=== PATIENT | female | born 1935 | race Caucasian/White ===

== ENCOUNTER → 2018-08-02 | Outpatient (REF) | payer MEDICARE, OTHER ==
[~2018-08-02] MED LIST: ASPIRIN EC325 MG PO; CALCIUM500 MG PO; COZAAR50 MG PO; FISH OIL300 MG PO; FOSAMAX70 MG PO; HYDROCO/APAP1 T11 PO; METO25TAB PO; MULTI VIT PO; OMEPRAZOLE20 MG PO; PROTONIX40 M2 OR; PROTONIX40 MG PO; SIMVASTATIN40 MG OR; SYMBICORT1 AE1 IN; VENLAFAXINE37.5 M2 PO; VOLTAREN75 MG PO
[2018-08-02 12:58] LABS: HEMATOCRIT 40.4 % (37.0-47.0); MEAN CELL VOLUME 101.3 fL CALC (80.0-100.0); MEAN CORPUSCULAR HGB 32.6 pG CALC (26.0-32.0); MEAN CORPUSCULAR HGB CONC 32.2 g/L CALC (32.0-36.0); RED BLOOD COUNT 3.99 mill/uL (4.20-5.60); RED CELL DISTRI WIDTH 14.9 % (11.5-15.5)
[2018-08-02 13:19] LABS: ALBUMIN 3.8 g/dL (3.2-5.0); ALKALINE PHOSPHATASE 84 u/l (38-126); ANION GAP 13 (6-22 (CALC)); BILIRUBIN, TOTAL 0.9 mg/dL (0.0-1.4); BUN 20 mg/dL (8-23); BUN/CREATININE RATIO 31 (12-20 (CALC)); CALCULATED LDLCHOLESTEROL 67 mg/dL (62-129 (CALC)); CARBON DIOXIDE 32 mmol/l (22-30); CHLORIDE 99 mmol/l (95-108); CREATININE 0.7 mg/dL (0.5-1.0); GFR > 60 ML/MIN (>=60 (CALC)); GFR FOR AFR.AMER. > 60 ML/MIN (>=60 (CALC)); HDL CHOLESTEROL 83 mg/dL (>=40); POTASSIUM 4.2 mmol/l (3.5-5.1); SGOT/AST 37 u/l (9-36); SODIUM 140 mmol/l (137-146); TOTAL CHOLESTEROL 168 mg/dl (0-199); TOTAL PROTEIN 6.8 g/dL (6.3-8.2); TOTAL TRIGLYCERIDES 93 mg/dl (30-149); VLDL CHOLESTROL 19 mg/dl (0-48 (CALC))
[2018-08-02 13:49] LABS: TSH, 3RD GENERATION 1.21 uIU/mL (0.47 - 4.68)
== END | disposition home or self-care (01) ==
LOC: LAB 12:10
PROVIDERS: ATTEND Nurse Practitioner Family
DX: I10 Essential (primary) hypertension (principal); I48.2 Chronic atrial fibrillation

== ENCOUNTER 2018-11-28 21:24 | Emergency (ER) | payer MEDICARE, OTHER ==
[~2018-11-28] VITALS: Ht 154.9 cm; Wt 90.9 kg
[2018-11-28 21:54] LABS: HEMATOCRIT 40.7 % (37.0-47.0); HEMOGLOBIN 13.3 g/dl (12.0-16.0); IMMATURE GRANULOCYTES 0.4 % (0.0-5.0); MEAN CORPUSCULAR HGB 31.1 pG CALC (26.0-32.0); MEAN CORPUSCULAR HGB CONC 32.7 g/L CALC (32.0-36.0); NEUT# 4.16 thou/uL (2.00-7.15); RED BLOOD COUNT 4.28 mill/uL (4.20-5.60); RED CELL DISTRI WIDTH 17.4 % (11.5-15.5)
[2018-11-28 21:58] LABS: MEAN CELL VOLUME 95.1 fL CALC (80.0-100.0)
[2018-11-28 22:10] LABS: BILIRUBIN, TOTAL 0.7 mg/dL (0.0-1.4); CREATININE 1.1 mg/dL (0.5-1.0); POTASSIUM 3.9 mmol/l (3.5-5.1); TOTAL PROTEIN 6.9 g/dL (6.3-8.2)
[2018-11-28] MEDS ORDERED: ALEVE220 M2 PO (22:59)
[2018-11-28] MEDS ORDERED: TYLENOL 500MG TAB PO (22:59)
[2018-11-28] MEDS ORDERED: ELIQUIS5 MG PO (23:00)
[2018-11-28] MEDS ORDERED: ELIQUIS2.5 MG PO (23:01)
[2018-11-28] MEDS ORDERED: GABAPENTIN100 MG PO (23:02)
[2018-11-28] MEDS ORDERED: PRAVASTATIN20 MG PO (23:03)
[2018-11-28] MEDS ORDERED: DYRENIUM50 MG PO (23:05)
[2018-11-28] MEDS ORDERED: OCCUVITE PO (23:06)
[2018-11-28] MEDS ORDERED: CALCI17 PO (23:08)
[2018-11-28] MEDS ORDERED: TRAMADOL HCL50 MG PO (23:18)
[2018-11-28 23:38] VITALS: BP 128/73
== END 2018-11-28 23:51 | disposition home or self-care (01) ==
LOC: ED 21:24
PROVIDERS: Family Medicine
DX: S00.33XA Contusion of nose, initial encounter (principal); G89.29 Other chronic pain; M47.816 Spondylosis without myelopathy or radiculopathy, lumbar region; F10.120 Alcohol abuse with intoxication, uncomplicated; Y90.6 Blood alcohol level of 120-199 mg/100 ml; W19.XXXA Unspecified fall, initial encounter; Y93.01 Activity, walking, marching and hiking; Y92.009 Unspecified place in unspecified non-institutional (private) residence as the place of occurrence of the external cause; I10 Essential (primary) hypertension; I48.91 Unspecified atrial fibrillation

== ENCOUNTER 2019-01-14 19:54 | Inpatient (IN) | payer MEDICARE, OTHER ==
[~2019-01-14] VITALS: Ht 154.9 cm; Wt 84.1 kg
[~2019-01-14 19:54] MED LIST changes: +ALEVE220 M2 PO; +CALCI17 PO; +DYRENIUM50 MG PO; +ELIQUIS2.5 MG PO; +ELIQUIS5 MG PO; +GABAPENTIN100 MG PO; +OCCUVITE PO; +PRAVASTATIN20 MG PO; +TRAMADOL HCL50 MG PO; +TYLENOL 500MG TAB PO
[2019-01-14] MEDS ORDERED: SPIRIVA HANDIH18 MCG IN (20:31)
[2019-01-14] MEDS ORDERED: ADVAIR DISK1 IN (20:32)
[2019-01-14 20:34] LABS: HEMATOCRIT 40.3 % (37.0-47.0); HEMOGLOBIN 12.8 g/dl (12.0-16.0); IMMATURE GRANULOCYTES 0.6 % (0.0-5.0); MEAN CELL VOLUME 96.2 fL CALC (80.0-100.0); MEAN CORPUSCULAR HGB 30.5 pG CALC (26.0-32.0); MEAN CORPUSCULAR HGB CONC 31.8 g/L CALC (32.0-36.0); NEUT# 10.01 thou/uL (2.00-7.15); RED BLOOD COUNT 4.19 mill/uL (4.20-5.60); RED CELL DISTRI WIDTH 17.2 % (11.5-15.5)
[2019-01-14 20:40] LABS: ALBUMIN 4.3 g/dL (3.2-5.0); ALKALINE PHOSPHATASE 97 u/l (38-126); BUN 35 mg/dL (8-23); BUN/CREATININE RATIO 35 (12-20 (CALC)); CHLORIDE 94 mmol/l (95-108); GFR 53 ML/MIN (>=60 (CALC)); GFR FOR AFR.AMER. > 60 ML/MIN (>=60 (CALC)); LIPASE 29 u/l (23-300); POTASSIUM 4.5 mmol/l (3.5-5.1); SGOT/AST 38 u/l (9-36); SODIUM 139 mmol/l (137-146); TOTAL PROTEIN 7.5 g/dL (6.3-8.2)
[2019-01-14 20:43] LABS: AMYLASE < 30 u/l (30-110); ANION GAP 16 (6-22 (CALC)); CARBON DIOXIDE 34 mmol/l (22-30)
[2019-01-14 20:51] LABS: MYOGLOBIN 55 ng/mL (0 - 62)
[2019-01-14 22:06] LABS: URINE BILIRUBIN - DIPSTICK NEGATIVE (NEGATIVE); URINE BLOOD DIPSTICK NEGATIVE (NEGATIVE); URINE COLOR YELLOW; URINE GLUCOSE - DIPSTICK NEGATIVE (NEGATIVE); URINE KETONE NEGATIVE (NEGATIVE); URINE LEUK ESTERASE TRACE (NEGATIVE); URINE PROTEIN - DIPSTICK NEGATIVE (NEG-TRACE); URINE SPECIFIC GRAVITY <=1.005
[2019-01-14 22:11] LABS: URINE NITRITE - DIPSTICK POSITIVE (Negative)
[2019-01-14 22:16] LABS: URINE BACTERIA MANY hpf; URINE SQUAMOUS EPITHELIAL CELL FEW EPI/hpf (0-FEW)
[2019-01-15 00:10] VITALS: BP 155/95
[2019-01-15 04:27] VITALS: BP 122/79
[2019-01-15 08:36] VITALS: BP 148/90
[2019-01-15 16:00] VITALS: BP 141/103
[2019-01-15 21:01] VITALS: BP 163/91
[2019-01-16 05:49] VITALS: BP 122/64
[2019-01-16 16:00] VITALS: BP 113/78
== END 2019-01-16 19:30 | disposition short-term general hospital (02) | DRG 540 ==
LOC: ED 19:54 → ED-I 23:09 → ED 23:28 → MS2 23:29
PROVIDERS: Emergency Medicine; ADMIT Internal Medicine; ATTEND Internal Medicine
DX: M46.24 Osteomyelitis of vertebra, thoracic region (principal); E87.3 Alkalosis; M46.44 Discitis, unspecified, thoracic region; I12.9 Hypertensive chronic kidney disease with stage 1 through stage 4 chronic kidney disease, or unspecified chronic kidney disease; N18.3 Chronic kidney disease, stage 3 (moderate); J44.9 Chronic obstructive pulmonary disease, unspecified; I48.2 Chronic atrial fibrillation; M06.9 Rheumatoid arthritis, unspecified; M19.90 Unspecified osteoarthritis, unspecified site; I73.9 Peripheral vascular disease, unspecified; M47.816 Spondylosis without myelopathy or radiculopathy, lumbar region; M41.86 Other forms of scoliosis, lumbar region; M48.061 Spinal stenosis, lumbar region without neurogenic claudication; K21.9 Gastro-esophageal reflux disease without esophagitis; E78.5 Hyperlipidemia, unspecified; F32.9 Major depressive disorder, single episode, unspecified; Z79.01 Long term (current) use of anticoagulants
CPT/HCPCS: G0378; Q9967

== ENCOUNTER 2019-02-09 16:09 | Observation (INO) | payer MEDICARE, OTHER ==
[~2019-02-09] VITALS: Ht 154.9 cm; Wt 84.1 kg
[~2019-02-09 16:09] MED LIST changes: +ADVAIR DISK1 IN; +SPIRIVA HANDIH18 MCG IN
[2019-02-09 17:04] LABS: IMMATURE GRANULOCYTES 0.2 % (0.0-5.0); MEAN CELL VOLUME 98.5 fL CALC (80.0-100.0); MEAN CORPUSCULAR HGB 31.2 pG CALC (26.0-32.0); MEAN CORPUSCULAR HGB CONC 31.6 g/L CALC (32.0-36.0); NEUT# 3.98 thou/uL (2.00-7.15); RED BLOOD COUNT 3.4 mill/uL (4.20-5.60); RED CELL DISTRI WIDTH 15.9 % (11.5-15.5)
[2019-02-09 17:05] LABS: HEMATOCRIT 33.5 % (37.0-47.0); HEMOGLOBIN 10.6 g/dl (12.0-16.0)
[2019-02-09 17:21] LABS: ALBUMIN 3.5 g/dL (3.2-5.0); ALKALINE PHOSPHATASE 116 u/l (38-126); ANION GAP 13 (6-22 (CALC)); BILIRUBIN, TOTAL 0.6 mg/dL (0.0-1.4); BUN 20 mg/dL (8-23); BUN/CREATININE RATIO 27 (12-20 (CALC)); CARBON DIOXIDE 33 mmol/l (22-30); CHLORIDE 96 mmol/l (95-108); CREATININE 0.7 mg/dL (0.5-1.0); GFR > 60 ML/MIN (>=60 (CALC)); GFR FOR AFR.AMER. > 60 ML/MIN (>=60 (CALC)); POTASSIUM 3.8 mmol/l (3.5-5.1); SGOT/AST 46 u/l (9-36); SODIUM 139 mmol/l (137-146); TOTAL PROTEIN 6.8 g/dL (6.3-8.2)
[2019-02-09] MEDS ORDERED: CEFTRIAXONE2 G1 IJ (17:55)
[2019-02-09 18:40] VITALS: BP 149/83
[2019-02-09 20:20] LABS: URINE BILIRUBIN - DIPSTICK NEGATIVE (NEGATIVE); URINE BLOOD DIPSTICK NEGATIVE (NEGATIVE); URINE COLOR YELLOW; URINE GLUCOSE - DIPSTICK NEGATIVE (NEGATIVE); URINE KETONE TRACE mg/dL (NEGATIVE); URINE LEUK ESTERASE NEGATIVE (NEGATIVE); URINE NITRITE - DIPSTICK NEGATIVE (Negative); URINE PROTEIN - DIPSTICK NEGATIVE (NEG-TRACE); URINE SPECIFIC GRAVITY <=1.005; URINE UROBILINOGEN - DIPSTICK 0.2 E.U./dL (0.2)
[2019-02-09] MEDS ORDERED: METOPROLOL SUCC25 MG PO (20:47)
[2019-02-09] MEDS ORDERED: FUROSEMIDE40 MG PO (20:47)
[2019-02-09] MEDS ORDERED: PROTONIX40 M2 PO (20:48)
[2019-02-09] MEDS ORDERED: OXYCODONE5 M1 PO (20:50)
[2019-02-09 23:20] VITALS: BP 160/79
[2019-02-10 05:22] VITALS: BP 141/83
[2019-02-10 07:11] VITALS: BP 145/78
[2019-02-10 12:00] VITALS: BP 141/79
[2019-02-10 16:00] VITALS: BP 151/90
[2019-02-10 19:00] VITALS: BP 126/69
[2019-02-11 00:43] VITALS: BP 126/69
[2019-02-11 04:45] VITALS: BP 137/78
[2019-02-11 07:59] VITALS: BP 117/74
[2019-02-11 12:02] VITALS: BP 120/78
[2019-02-11 17:20] VITALS: BP 150/74
[2019-02-11 19:00] VITALS: BP 104/70
[2019-02-12 00:44] VITALS: BP 124/81
[2019-02-12 04:00] VITALS: BP 131/85
[2019-02-12 04:59] LABS: HEMATOCRIT 34.7 % (37.0-47.0); HEMOGLOBIN 10.8 g/dl (12.0-16.0); IMMATURE GRANULOCYTES 0.2 % (0.0-5.0); MEAN CELL VOLUME 100.9 fL CALC (80.0-100.0); MEAN CORPUSCULAR HGB 31.4 pG CALC (26.0-32.0); MEAN CORPUSCULAR HGB CONC 31.1 g/L CALC (32.0-36.0); NEUT# 3.53 thou/uL (2.00-7.15); RED BLOOD COUNT 3.44 mill/uL (4.20-5.60); RED CELL DISTRI WIDTH 15.6 % (11.5-15.5)
[2019-02-12 05:29] LABS: ALBUMIN 3.5 g/dL (3.2-5.0); ALKALINE PHOSPHATASE 112 u/l (38-126); ANION GAP 11 (6-22 (CALC)); BILIRUBIN, TOTAL 0.5 mg/dL (0.0-1.4); BUN 19 mg/dL (8-23); BUN/CREATININE RATIO 23 (12-20 (CALC)); CARBON DIOXIDE 35 mmol/l (22-30); CHLORIDE 96 mmol/l (95-108); CREATININE 0.8 mg/dL (0.5-1.0); GFR > 60 ML/MIN (>=60 (CALC)); GFR FOR AFR.AMER. > 60 ML/MIN (>=60 (CALC)); POTASSIUM 4.4 mmol/l (3.5-5.1); SGOT/AST 35 u/l (9-36); SODIUM 138 mmol/l (137-146); TOTAL PROTEIN 6.4 g/dL (6.3-8.2)
[2019-02-12 07:40] VITALS: BP 116/71
[2019-02-12 11:10] VITALS: BP 94/55
[2019-02-12] MEDS ORDERED: ROCEPHIN 2 GM2 GM IV (15:31)
== END 2019-02-12 16:00 ==
LOC: ED 16:09 → ED-I 17:35 → ED 17:58 → MS2 17:59
PROVIDERS: Emergency Medicine; Internal Medicine Nephrology; ADMIT Internal Medicine; ATTEND Internal Medicine
DX: M46.27 Osteomyelitis of vertebra, lumbosacral region (principal); I10 Essential (primary) hypertension; J44.9 Chronic obstructive pulmonary disease, unspecified; I48.2 Chronic atrial fibrillation; I73.9 Peripheral vascular disease, unspecified; G62.9 Polyneuropathy, unspecified; K21.9 Gastro-esophageal reflux disease without esophagitis; E78.5 Hyperlipidemia, unspecified; F32.9 Major depressive disorder, single episode, unspecified; F41.9 Anxiety disorder, unspecified; M46.90 Unspecified inflammatory spondylopathy, site unspecified; B95.4 Other streptococcus as the cause of diseases classified elsewhere; Z79.01 Long term (current) use of anticoagulants; Z99.81 Dependence on supplemental oxygen; R53.1 Weakness; R42 Dizziness and giddiness; M79.10 Myalgia, unspecified site

== ENCOUNTER 2019-03-03 16:40 | Observation (INO) | payer MEDICARE, OTHER ==
[~2019-03-03] VITALS: Ht 154.9 cm; Wt 75.5 kg
[~2019-03-03 16:40] MED LIST changes: +CEFTRIAXONE2 G1 IJ; +FUROSEMIDE40 MG PO; +METOPROLOL SUCC25 MG PO; +OXYCODONE5 M1 PO; +PROTONIX40 M2 PO; +ROCEPHIN 2 GM2 GM IV
[2019-03-03 17:12] LABS: HEMATOCRIT 38.2 % (37.0-47.0); HEMOGLOBIN 12.2 g/dl (12.0-16.0); IMMATURE GRANULOCYTES 0.3 % (0.0-5.0); MEAN CELL VOLUME 97.2 fL CALC (80.0-100.0); MEAN CORPUSCULAR HGB CONC 31.9 g/L CALC (32.0-36.0); NEUT# 7.02 thou/uL (2.00-7.15); RED BLOOD COUNT 3.93 mill/uL (4.20-5.60); RED CELL DISTRI WIDTH 15.1 % (11.5-15.5)
[2019-03-03 17:23] LABS: ALBUMIN 3.9 g/dL (3.2-5.0); ALKALINE PHOSPHATASE 119 u/l (38-126); BUN 20 mg/dL (8-23); BUN/CREATININE RATIO 28 (12-20 (CALC)); CHLORIDE 102 mmol/l (95-108); CREATININE 0.7 mg/dL (0.5-1.0); GFR > 60 ML/MIN (>=60 (CALC)); GFR FOR AFR.AMER. > 60 ML/MIN (>=60 (CALC)); POTASSIUM 4.2 mmol/l (3.5-5.1); SGOT/AST 38 u/l (9-36); SODIUM 138 mmol/l (137-146); TOTAL PROTEIN 7.3 g/dL (6.3-8.2)
[2019-03-03 17:36] LABS: ANION GAP 14 (6-22 (CALC)); BILIRUBIN, TOTAL 1.2 mg/dL (0.0-1.4); CARBON DIOXIDE 26 mmol/l (22-30)
[2019-03-03 22:11] LABS: URINE BILIRUBIN - DIPSTICK NEGATIVE (NEGATIVE); URINE BLOOD DIPSTICK NEGATIVE (NEGATIVE); URINE COLOR YELLOW; URINE GLUCOSE - DIPSTICK NEGATIVE (NEGATIVE); URINE KETONE TRACE mg/dL (NEGATIVE); URINE LEUK ESTERASE NEGATIVE (NEGATIVE); URINE NITRITE - DIPSTICK NEGATIVE (Negative); URINE PROTEIN - DIPSTICK 30 mg/dL (NEG-TRACE); URINE SPECIFIC GRAVITY 1.015; URINE UROBILINOGEN - DIPSTICK 0.2 E.U./dL (0.2)
[2019-03-03 22:14] LABS: URINE RBC 0-2 RBC/hpf (0-5); URINE SQUAMOUS EPITHELIAL CELL FEW EPI/hpf (0-FEW); URINE WBC 0-2 WBC/hpf (0-5)
[2019-03-03 22:15] VITALS: BP 166/81
[2019-03-03 22:30] VITALS: BP 156/76
[2019-03-03 22:45] VITALS: BP 161/78
[2019-03-03 23:00] VITALS: BP 157/77
[2019-03-04] VITALS (10 sets, daily range): BP systolic 118–190; BP diastolic 67–100
[2019-03-04 05:21] LABS: HEMATOCRIT 38.3 % (37.0-47.0); HEMOGLOBIN 12.1 g/dl (12.0-16.0); IMMATURE GRANULOCYTES 0.5 % (0.0-5.0); MEAN CELL VOLUME 98.2 fL CALC (80.0-100.0); MEAN CORPUSCULAR HGB CONC 31.6 g/L CALC (32.0-36.0); NEUT# 4.95 thou/uL (2.00-7.15); RED BLOOD COUNT 3.9 mill/uL (4.20-5.60); RED CELL DISTRI WIDTH 15.2 % (11.5-15.5)
[2019-03-04 05:52] LABS: ALBUMIN 3.5 g/dL (3.2-5.0); ALKALINE PHOSPHATASE 105 u/l (38-126); AMYLASE 42 u/l (30-110); ANION GAP 13 (6-22 (CALC)); BILIRUBIN, TOTAL 1.1 mg/dL (0.0-1.4); BUN 19 mg/dL (8-23); BUN/CREATININE RATIO 29 (12-20 (CALC)); CARBON DIOXIDE 26 mmol/l (22-30); CHLORIDE 103 mmol/l (95-108); CREATININE 0.7 mg/dL (0.5-1.0); GFR > 60 ML/MIN (>=60 (CALC)); GFR FOR AFR.AMER. > 60 ML/MIN (>=60 (CALC)); LIPASE 71 u/l (23-300); MAGNESIUM 1.8 mg/dL (1.6-2.3); POTASSIUM 4.3 mmol/l (3.5-5.1); SGOT/AST 29 u/l (9-36); SODIUM 139 mmol/l (137-146); TOTAL PROTEIN 6.6 g/dL (6.3-8.2)
[2019-03-04] MEDS ORDERED: EFFEXOR XR37.5 MG PO (15:13)
[2019-03-04] MEDS ORDERED: CALCIUM 500 PO (15:13)
[2019-03-04] MEDS ORDERED: PRAVASTATIN SOD20 MG PO (15:13)
[2019-03-04] MEDS ORDERED: GABAPENTIN100 MG PO (15:14)
[2019-03-04] MEDS ORDERED: OMEPRAZOLE10 MG PO (15:15)
[2019-03-04] MEDS ORDERED: MAXZIDE-2537.5 MG/TA PO (15:16)
[2019-03-04] MEDS ORDERED: METO25TAB PO (15:16)
[2019-03-04] MEDS ORDERED: SPIRIVA RE2.5 MCG/AC IN (15:17)
[2019-03-04] MEDS ORDERED: ADVAIR DISKU IN (15:17)
[2019-03-04] MEDS ORDERED: VENTOLIN HFA IN (15:18)
[2019-03-04] MEDS ORDERED: LASIX 40 MG TAB40 MG PO (15:18)
[2019-03-04] MEDS ORDERED: ELIQUIS5 MG PO (15:19)
[2019-03-04] MEDS ORDERED: PROVENTIL0.083 % IN (15:19)
== END 2019-03-04 18:00 | disposition short-term general hospital (02) ==
LOC: ED 16:40 → ED-I 18:04 → ED 18:18 → ICU 18:19
PROVIDERS: Emergency Medicine; ADMIT Internal Medicine Nephrology; ATTEND Internal Medicine Nephrology
DX: M46.24 Osteomyelitis of vertebra, thoracic region (principal); M46.26 Osteomyelitis of vertebra, lumbar region; M48.56XA Collapsed vertebra, not elsewhere classified, lumbar region, initial encounter for fracture; J44.9 Chronic obstructive pulmonary disease, unspecified; I12.9 Hypertensive chronic kidney disease with stage 1 through stage 4 chronic kidney disease, or unspecified chronic kidney disease; N18.3 Chronic kidney disease, stage 3 (moderate); I48.2 Chronic atrial fibrillation; G62.9 Polyneuropathy, unspecified; K21.9 Gastro-esophageal reflux disease without esophagitis; E78.5 Hyperlipidemia, unspecified; F41.1 Generalized anxiety disorder; F32.9 Major depressive disorder, single episode, unspecified; M06.9 Rheumatoid arthritis, unspecified; Z79.01 Long term (current) use of anticoagulants
CPT/HCPCS: A9579; J2060